=== PATIENT | male | born 1975 | race Caucasian/White ===

== ENCOUNTER 2022-08-04 15:52 | Emergency (ER) | payer MEDICAID ==
[~2022-08-04] VITALS: Ht 177.8 cm; Wt 95.3 kg
[2022-08-04] MEDS ORDERED: LIDOCAINE 1%-EPI 1:100,000 20 ML VIAL IJ ONE (16:00)
[2022-08-04] MEDS ORDERED: TDAP DIPH,PERTUSS,TET VAC/PF 0.5 ML DISP.SYRIN IM ONE ×2 (16:00→16:25)
[2022-08-04] MEDS ORDERED: LIDOCAINE HCL 2% 20 ML VIAL ONE (16:01)
[2022-08-04] MEDS ORDERED: LIDOCAINE HCL 1% 20 ML VIAL ONE (16:02)
[2022-08-04] MEDS ORDERED: KETOROLAC TROMETHAMINE 15 MG INJ ONE (16:27)
--- NOTE | 2022-08-04 16:50 | NUR ---
wound was wrapped, tetanus shot given. Patient discharged to home in stable condition. Written and verbal after care instructions given. Patient verbalizes understanding of instructions. Stressed follow up or return to ER for worsening s/s.
== END 2022-08-04 17:00 | disposition home or self-care (01) ==
LOC: ER 15:52
DX: S71.111A Laceration without foreign body, right thigh, initial encounter (principal); W29.8XXA Contact with other powered hand tools and household machinery, initial encounter; Y93.H3 Activity, building and construction; Y92.89 Other specified places as the place of occurrence of the external cause; Y99.0 Civilian activity done for income or pay
CPT/HCPCS: 99283; 90715; 90471; 12004; J3490; A4663; J1885

== ENCOUNTER 2022-08-04 20:39 | Emergency (ER) | payer SELFPAY ==
--- NOTE | 2022-08-04 23:41 | NUR ---
Pt not in waiting room.
== END 2022-08-04 23:41 | disposition left against medical advice (07) ==
LOC: ER 20:39
DX: Z53.21 Procedure and treatment not carried out due to patient leaving prior to being seen by health care provider (principal)

== ENCOUNTER 2022-08-08 19:53 | Emergency (ER) | payer SELFPAY ==
[~2022-08-08] VITALS: Ht 177.8 cm; Wt 90.7 kg
== END 2022-08-09 00:45 | disposition left against medical advice (07) ==
LOC: ER 19:55
DX: Z53.21 Procedure and treatment not carried out due to patient leaving prior to being seen by health care provider (principal)